=== PATIENT | female | born 1930 | race Caucasian/White ===

== ENCOUNTER → 2016-09-20 | Outpatient (CLI) | payer MEDICARE | END | disposition home or self-care (01) | LOC: YCHH 12:27 | PROVIDERS: ATTEND Family Medicine | DX: N39.0 Urinary tract infection, site not specified (principal) ==

== ENCOUNTER → 2016-10-31 | Outpatient (CLI) | payer MEDICARE | LOC: YCHH 09:40 | PROVIDERS: ATTEND Family Medicine | DX: D64.9 Anemia, unspecified (principal); E78.5 Hyperlipidemia, unspecified; I10 Essential (primary) hypertension ==

== ENCOUNTER 2016-11-07 10:37 | Observation (INO) | payer MEDICARE ==
[2016-11-07] MEDS ORDERED: SODIUM CHLORIDE 0.9% (FLUSH) 10 ML SYG IV PRN ×2 (10:53→16:13)
[2016-11-07] MEDS ORDERED: ASPIRIN TABLET 325 MG TAB PO ONE (10:53)
[2016-11-07] MEDS ORDERED: NITROGLYCERIN 0.4 MG 25 EA TAB SL ONE (10:53)
--- NOTE | 2016-11-07 10:53 | ED.PDOC ---
History of Present Illness - General Chief Complaint: Cardiovascular Problem Stated Complaint: chest pain Time Seen by Provider: 11/07/16 10:52 Source: patient, RN notes reviewed, EMS notes reviewed, family Exam Limitations: no limitations - History of Present Illness Initial Comments: Ms. Mercedes Reid 86 y/o female stated left side of her chest was achy and also her left shoulder which occurred about 4 hours ago also with sob for the last several months,has occassional exertional dyspnea but no exertional pain.Has high blood pressure,gerd,cad,pe/dvt,dementia. Timing/Duration: 4-6 hours Severity: moderate Location: other - left chest Activities at Onset: none Prior Chest Pain/Cardiac Workup: echocardiography, pulmonary embolism Improving Factors: nothing Worsening Factors: nothing Nitro Today/Relief: provided by ED Aspirin Treatment Today: 325 mg x 1 Associated Symptoms: shortness of breath - for one month Allergies/Adverse Reactions: Allergies NO KNOWN ALLERGY Allergy (Verified 11/07/16 11:00) Review of Systems - Review of Systems Constitutional: States: no symptoms reported EENTM: States: no symptoms reported Respiratory: States: see HPI, short of breath Cardiology: States: see HPI Gastrointestinal/Abdominal: States: no symptoms reported Genitourinary: States: no symptoms reported Musculoskeletal: States: no symptoms reported Skin: States: no symptoms reported Neurological: States: no symptoms reported Endocrine: States: no symptoms reported Hematologic/Lymphatic: States: no symptoms reported Past Medical History (General) - Patient Medical History Hx Cardiac Disorders: Yes Hx Hypertension: Yes Hx Gastroesophageal Reflux: Yes Hx Other PMH: Yes - dvt/pe Surgical History: other - hysterectomy,right hip,closed redn c-spine fracture - Activities of Daily Living Patient Lives Alone: Yes Grooming Ability: Independent Eating (Feeding) Ability: Independent Toileting Ability: Independent Family Medical History - Family History Mother Family History: No Known Living Status: Hx Cardiac Disease: Yes - dad Hx Family Cancer: Yes - dad-prostate,pancreas Physical Exam - Physical Exam General Appearance: Alert, Comfortable, No apparent distress Eyes, Ears, Nose, Throat Exam: PERRL/EOMI, normal ENT inspection, TMs normal Neck: non-tender, full range of motion, supple, normal inspection Respiratory: chest non-tender, lungs clear, normal breath sounds, no respiratory distress Cardiovascular/Chest: normal peripheral pulses, regular rate, rhythm, no edema, no gallop, no JVD, no murmur Peripheral Pulses: radial,right: 2+, radial,left: 2+ Gastrointestinal/Abdominal: normal bowel sounds, non tender, soft, no organomegaly, no pulsatile mass Extremity: normal range of motion, non-tender, normal inspection, no pedal edema , no calf tenderness Neurologic: no motor/sensory deficits, alert, normal mood/affect, oriented x 3 Skin Exam: normal color, warm/dry Lymphatic: no adenopathy Progress - Results/Orders Results/Orders: 11/07/16 10:25 B-TYPE NATRIURETIC PEPTIDE/BNP Stat CARDIAC PANEL,ER Stat HEPATIC FUNCTION PANEL Stat 11/07/16 10:53 IV Care:Saline Lock per Protoc QSHIFT Telemetry .ONCE Sodium Chloride 0.9% (Flush) [Saline Flush Syringe] 10 ml IV PRN PRN EKG Stat Pulse Ox Stat 11/07/16 11:51 URINALYSIS Stat 11/07/16 12:18 TSH [THYROID STIMULATING HORMONE] Stat Laboratory Results WBC 4.3 K/mm3 (4.8-10.8) L 11/07/16 10:25 RBC 4.21 M/mm3 (4.20-5.40) 11/07/16 10:25 Hgb 12.8 gm/dL (12.0-16.0) 11/07/16 10:25 Hct 38.7 % (36.0-47.0) 11/07/16 10:25 MCV 91.9 fl (81.0-99.0) 11/07/16 10:25 MCH 30.4 pg (27.0-31.0) 11/07/16 10:25 MCHC 33.1 g/dL (33.0-37.0) 11/07/16 10:25 RDW 13.7 % (11.5-14.5) 11/07/16 10:25 Plt Count 156 K/mm3 (130-400) 11/07/16 10:25 MPV 8.4 fl (7.40-10.4) 11/07/16 10:25 Absolute Neuts (auto) 2.50 K/uL (1.8-6.8) 11/07/16 10:25 Absolute Lymphs (auto) 1.20 K/uL (1.0-3.4) 11/07/16 10:25 Absolute Monos (auto) 0.50 K/uL (0.2-0.8) 11/07/16 10:25 Absolute Eos (auto) 0.10 K/uL (0.0-0.4) 11/07/16 10:25 Absolute Basos (auto) 0.10 K/uL (0.0-0.1) 11/07/16 10:25 Neutrophils % 58.1 % (42.0-78.0) 11/07/16 10:25 Lymphocytes % 27.1 % (20.0-50.0) 11/07/16 10:25 Monocytes % 10.5 % (2.0-9.0) H 11/07/16 10:25 Eosinophils % 2.8 % (1.0-5.0) 11/07/16 10:25 Basophils % 1.5 % (0.0-2.0) 11/07/16 10:25 D-Dimer, Quantitative < 200 ng/mL (0-230) 11/07/16 10:25 Sodium 125 mmol/L (135-145) L 11/07/16 10:25 Potassium 4.3 mmol/L (3.6-5.0) 11/07/16 10:25 Chloride 93 mmol/L (101-111) L 11/07/16 10:25 Carbon Dioxide 26 mmol/L (21-31) 11/07/16 10:25 Anion Gap 10.3 (12-18) L 11/07/16 10:25 BUN 27 mg/dL (7-18) H 11/07/16 10:25 Creatinine 1.53 mg/dL (0.6-1.3) H 11/07/16 10:25 BUN/Creatinine Ratio 17.6 (10-20) 11/07/16 10:25 Random Glucose 89 mg/dL (70-105) 11/07/16 10:25 Serum Osmolality 256.1 mOsm/L (275-295) L 11/07/16 10:25 Calcium 9.4 mg/dL (8.4-10.2) 11/07/16 10:25 Magnesium 1.9 mg/dL (1.8-2.5) 11/07/16 10:25 Total Bilirubin 1.0 mg/dL (0.2-1.0) 11/07/16 10:25 Direct Bilirubin 0.3 mg/dL (0-0.2) H 11/07/16 10:25 Indirect Bilirubin 0.7 mg/dL (0.2-0.8) 11/07/16 10:25 AST 32 IU/L (10-42) 11/07/16 10:25 ALT < 8 IU/L (10-60) L 11/07/16 10:25 Alkaline Phosphatase 36 IU/L (42-121) L 11/07/16 10:25 Creatine Kinase 19 IU/L (26-140) L 11/07/16 10:25 CK-MB (CK-2) 2.0 ng/mL (0.0-4.4) 11/07/16 10:25 CK-MB (CK-2) % Not Reportable 11/07/16 10:25 Troponin I 0.03 ng/mL (0.01-0.05) 11/07/16 10:25 B-Natriuretic Peptide 281.0 pg/ml (0-100) H* 11/07/16 10:25 Serum Total Protein 6.6 gm/dL (6.4-8.2) 11/07/16 10:25 Albumin 3.6 g/dl (3.2-5.5) 11/07/16 10:25 Discuss lab results with patient and family recommending hospital OBS and family agreeable with the plan. - EKG/XRAY/CT EKG: Sinus, nonspecific ST T wave Chg Comments: hr-56,LAFB,slight qrs widening XRAY: chest - no acute abnormality Departure - Departure Clinical Impression: Hyponatremia, Renal insufficiency, mild, Malaise and fatigue Chest pain Qualifiers: Chest pain type: unspecified Qualified Code(s): R07.9 - Chest pain, unspecified Time of Disposition: 12:59 - D/W Adonay [id number] Disposition: Admit Patient Condition: Fair Departure Forms: Patient Portal Self Enrollment Referrals: Vahid Ortega MD [Primary Care Provider] - 1-2 Weeks
--- NOTE | 2016-11-07 11:16 | RAD ---
EXAM DESCRIPTION: Chest,1 View CLINICAL HISTORY: 86 years,Female,pain COMPARISON: December 04, 2008 FINDINGS: Lung gomez are clear, no consolidation, effusions, or nodules. Heart size and pulmonary vascularity are normal. Bony elements are unremarkable for age. IMPRESSION: Unremarkable chest. Stable Electronically signed by: Adriano Franks MD 11/07/2016 11:15 AM CDT
[2016-11-07] MEDS ORDERED: SODIUM CHLORIDE 0.9% 1000ML 1,000 ML IVS PRN (14:09)
--- NOTE | 2016-11-07 14:27 | HP ---
SUPERVISING PHYSICIAN: López Alas M.D. CHIEF COMPLAINT: Chest pain. HISTORY OF PRESENT ILLNESS: Ms. Reid is an 86 year-old female patient that presented to the Emergency Department today complaining of left sided chest pain that was described as achy with some shoulder discomfort that occurred about 4 hours prior to arrival. She had also noted she has had shortness of breath over the last several months and has occasional exertional dyspnea but no pain with exertion. She does have a significant history for hypertension, previous deep venous thromboses, PEs and gastroesophageal reflux disease. In the Emergency Department, initial laboratory studies showed she had cardiac enzymes that were within normal limits with troponin 0.03 but elevated BMP of 281. Also of significance was a low serum osmolality at 256 along with a low sodium of 125. The patient does have a history of being recently placed on Bactrim for a lower leg infection and it was noted by the patient she was encouraged to drink water while taking her medication. Her EKG showed a normal sinus rhythm with a left anterior fascicular block which is unchanged compared to previous note of a myocardial perfusion scan on 07/14/07 per medical record review. Given the fact that was having some chest pains on admission, Dr. Wilson, Emergency Room physician, requested the patient be placed on admission to further rule out any acute myocardial injury. The patient was placed in Observation in stable condition for treatment of hyponatremia along with further telemetry, monitoring and testing to further rule out an acute myocardial infarction. PAST MEDICAL HISTORY: 1. History of atrial fibrillation on Xarelto. 2. Pulmonary embolism in 2005. 3. Diverticulosis. 4. Hypertension. 5. Osteoporosis. PAST SURGICAL HISTORY: 1. Appendectomy. 2. Left leg fracture repair with internal fixation times 2. 3. Hysterectomy with bilateral salpingo-oophorectomy. 4. Tonsillectomy. 5. Right hip fracture with hemiarthroplasty in October 2009. 6. Left breast tumor. 7. IVC filter placement. HOME MEDICATIONS: 1. Toprol XL 25 mg daily. 2. Feosol tablet 325 mg daily. 3. TriCor 145 mg daily. 4. Tramadol 50 mg every 6 hours p.r.n. for pain. 5. Xarelto 10 mg daily. 6. Calcium supplement 2 tablets daily. 7. Gaviscon 3 mL daily p.r.n. 8. Propafenone 150 mg daily. 9. Spironolactone 25 mg daily. 10. Namenda XR 28 mg daily. ALLERGIES: MORPHINE. FAMILY HISTORY: Father from emphysema and cancer. Mother from emphysema and asthma. SOCIAL HISTORY: The patient is housewife. She is . She does live in [place]. She has never smoked nor does she drink alcohol or use illicit drugs. REVIEW OF SYSTEMS: CONSTITUTIONAL: Denies any fevers, aches or chills. HEENT: No vision changes, visual disturbances, headaches or syncopal episodes. RESPIRATORY: As noted in the History of Present Illness, exertional dyspnea which is chronic. CARDIOVASCULAR: As noted in the History of Present Illness. GASTROINTESTINAL: No nausea, vomiting or diarrhea. GENITOURINARY: No dysuria, increased frequency, hematuria or other urinary symptoms. MUSCULOSKELETAL: As noted in the History of Present Illness. NEUROLOGIC: Denies any syncopal episodes, vision changes, headaches or other neurological symptoms. PHYSICAL EXAMINATION: VITAL SIGNS: Temperature 97.5, pulse 54, blood pressure 150/74, respirations 17 , O2 sat 97% on room air. GENERAL: The patient appears to be in no distress. Appears well hydrated and well nourished. HEENT: Tympanic membranes are clear bilaterally. Oropharynx is pink and moist without any lesions. NECK: No jugular venous distention. Neck is supple with full range of motion. CHEST: Lungs are clear to auscultation bilaterally without any rhonchi, wheezing or rales. CARDIOVASCULAR: Regular rate and rhythm without appreciable murmurs, gallops, or rubs. ABDOMEN: Soft, non-tender. Positive bowel sounds. EXTREMITIES: No clubbing, cyanosis or edema. NEUROLOGIC: She is alert and oriented times three. RADIOLOGY: Chest x-ray single view per radiology interpretation shows unremarkable chest and stable. ASSESSMENT: 1. Chest pain, rule out acute myocardial infarction. 2. History of atrial fibrillation with current sinus rhythm with a left anterior fascicular block. No significant change compared to previous. 3. Hypertension, although hypotensive. 4. Diverticulosis. 5. Osteoporosis. 6. Elevated beta natriuretic peptide with no significant history of congestive heart failure with last echocardiogram per review of records on 07/14/07 showing a calculated ejection fraction on myocardial perfusion scan to be 72%. 7. Electrolyte imbalance to include moderate hyponatremia possibly secondary to excessive fluid intake with a current elevated BNP on admission with no mention of a history of congestive heart failure. 8. Extensive peripheral vascular disease with previous pulmonary embolism currently on Xarelto. PLAN: The patient will be placed in Observation tonight to continue with cardiac enzymes to further rule out any acute myocardial infarction. She will be given some normal saline 60 mL an hour as well as a small dose of Lasix to attempt to normalize her sodium. Will continue to monitor the patient on telemetry as well as repeat cardiac enzymes and EKGs as per cardiac rule out protocol. Anticipate possible discharge tomorrow. She will also be on fluid restriction of 1500 mL per 24 hours in efforts to normalize her sodium as well as her osmolality. Until discharge, will continue to monitor the patient closely and treat appropriately. #[id number] [facility]
[2016-11-07] MEDS ORDERED: FUROSEMIDE INJ 20 MG/2 ML VIAL IV ONE (16:12)
[2016-11-07] MEDS ORDERED: ACETAMINOPHEN 325 MG TAB PO PRN (16:13)
[2016-11-07] MEDS ORDERED: NITROGLYCERIN 0.4 MG 25 EA TAB SL PRN (16:13)
[2016-11-07] MEDS ORDERED: IV SET AND CAP CHANGE INJ INJ SCH (16:30)
[2016-11-07] MEDS ORDERED: traMADol HCL 50 MG TAB PO PRN (21:18)
[2016-11-07] MEDS: SODIUM CHLORIDE 0.9% (FLUSH) 10 ML SYG IV SCH (21:35)
[2016-11-07] MEDS: PROPAFENONE 150 MG TAB PO SCH (21:37)
[2016-11-07] MEDS: NON-FORMULARY MEDICATION 1 EA MIS (Memantine Hcl [Namenda Xr] 28 MG) PO SCH (21:42)
[2016-11-08] MEDS ORDERED: ASPIRIN TABLET 325 MG TAB ONE (07:15)
[2016-11-08] MEDS ORDERED: ASPIRIN TABLET 325 MG TAB PO SCH (09:00)
[2016-11-08] MEDS ORDERED: SPIRONOLACTONE 25 MG TAB PO SCH (09:00)
[2016-11-08] MEDS ORDERED: FENOFIBRIC ACID 135 MG CAP PO SCH (09:00)
[2016-11-08] MEDS ORDERED: FERROUS SULFATE 325 MG TAB PO SCH (09:00)
[2016-11-08] MEDS ORDERED: NON-FORMULARY MEDICATION 1 EA MIS (Fenofibrate [Tricor] 145 MG) PO SCH (09:00)
[2016-11-08] MEDS ORDERED: METOPROLOL SUCCINATE XL 25 MG TAB PO SCH (09:00)
[2016-11-08] MEDS ORDERED: RIVAROXABAN 10 MG TAB PO SCH (09:00)
[2016-11-08] MEDS ORDERED: CALCIUM CARBONATE-VITAMIN D 500 MG TAB PO SCH (09:00)
[2016-11-08] MEDS: PROPAFENONE 150 MG TAB PO SCH (09:13)
[2016-11-08] MEDS: NON-FORMULARY MEDICATION 1 EA MIS (Memantine Hcl [Namenda Xr] 28 MG) PO SCH (09:13)
[2016-11-08] MEDS: SODIUM CHLORIDE 0.9% (FLUSH) 10 ML SYG IV SCH (09:13)
--- NOTE | 2016-11-08 09:57 | PCM.CORE ---
Physician DVT/VTE - Prophylaxis Currently: Patient already on anticoagulation therapy - xarelto - Nurse DVT Assessment & Total Each Risk Factor Represents 3 Points: Age over 75 years, Hx of DVT/PE, Medical PT with Hx of DC, CHF, Severe infection/sepsis Each Risk Factor Represents 1 Point: Medical PT at Bed Rest DVT Assessment Score: 10
[2016-11-08 10:50] VITALS: BP 114/63; TEMP 97.8; O2SAT 99
--- NOTE | 2016-11-12 08:51 | DS ---
SUPERVISING PHYSICIAN: Misael Alas MD DISCHARGE DIAGNOSIS: 1. Chest wall pain, felt to be secondary to musculoskeletal discomfort with cardiac enzymes within normal limits with no significant changes on EKG. 2. History of atrial fibrillation with sinus rhythm on admission with a noted left anterior fascicular block, which is unchanged and not new compared to previous EKGs. 3. Hypertension, stable. 4. Elevated BNP with no significant history of congestive heart failure with last echocardiogram by review of records on 07/14/07 showing ejection fraction on myocardial perfusion scan of 72%. 5. Electrolyte imbalance to include hyponatremia, felt to be secondary to excessive fluid intake after treatment for previous lower leg wound with current BNP elevated on admission with no mention of history of congestive heart failure. 6. History of diverticulosis. 7. History of osteoporosis. 8. History of extensive peripheral vascular disease with previous pulmonary embolism, currently on Xarelto. HISTORY OF PRESENT ILLNESS: Ms. Reid is an 86-year-old female patient that presented to the Emergency Department on date of admission of 11/07 complaining of left sided chest pain that was described as "achy" with some shoulder discomfort that occurred about 4 hours prior to arrival to the Emergency Department. She noted she had been having shortness of breath over the last several months and has a few occasions of exertional dyspnea, but no pain with exertion. She does have a significant history for hypertension and previous deep venous thromboses, PEs and gastroesophageal reflux disease, currently on Xarelto. In the Emergency Department, initial laboratory studies showed she had cardiac enzymes that were within normal limits with troponin 0.03 , but significantly elevated BNP of 281. Also of significance was a low serum osmolality at 256 along with a low sodium of 125. The patient has a history of being recently placed on Bactrim for a lower leg infection and it was noted by the patient she was encouraged to drink water while taking her medication. Her initial EKG showed a normal sinus rhythm with a left anterior fascicular block which is unchanged compared to previous note of a myocardial perfusion scan on 07/14/07 per medical record review. Given the fact that was having some chest pains on admission, Dr. Wilson, Emergency Room physician, requested the patient be placed in observation to further rule out any acute myocardial injury. The patient was placed in Observation in stable condition for treatment of hyponatremia along with further telemetry, monitoring and testing to further rule out an acute myocardial infarction. LABORATORY: CBC was stable with a white count of 4.4 at discharge, hemoglobin 12.1, hematocrit 35.9, platelet count 144,000, differential without a left shift. Coagulation studies slightly elevated PT of 15.8, but the patient is on Xarelto, with PT-T 33.5. D-dimer was less than 200. Chemistries initially on admission showed electrolyte imbalance with low sodium of 125 and after treatment with normal saline and at time of discharge, sodium to 130. Potassium remained within normal limits and at discharge was 3.8, BUN 27, creatinine 1.3. Initial osmolality on admission was 256, prior to discharge was 265. Liver functions were within normal limits. She had four sets of cardiac enzymes, all with a troponin of 0.03 and normal CPK and CK-MB. She had a slightly elevated BNP on admission of 281. Lipid profile showed triglycerides 38, cholesterol 116, LDL 46, HDL 61, TSH within normal limits. Urinalysis on admission was within normal limits. RADIOLOGY: One chest x-ray in the Emergency Department prior to admission, single view, per radiology interpretation showed unremarkable chest that was stable compared to 12/04/08. EKG prior to admission, 12-lead, showed sinus rhythm with nonspecific ST wave changes and a left anterior fascicular block. When compared to previous EKG, it was unchanged. Additional EKGs showed no significant changes compared to admission. HOSPITAL COURSE: Ms. Reid was admitted through the Emergency Department as noted in history of present illness with concerns for chest pains with hyponatremia. On admission to the Medical/Surgical Floor, the patient was actually pain free and remained pain free through the entire admission. She remained on telemetry, showed no arrhythmias, and was started on sodium replacement with normal and on the morning of discharge had clinically shown improvement and was no longer complaining of any pain at all and remained hemodynamically stable. She was felt clinically well enough for discharge and to have close clinical followup in the outpatient setting. PLAN: Ms. Reid was discharged on 11/08/16 with instructions to have close clinical followup with her primary care provider, Dr. Ortega, as scheduled and to have continued home health care with [facility]. She was to resume her home medications as previous to her hospitalization. She was encouraged to drink fluids in moderation to prevent over hydration and to limit to no more than 1800 mL in a 24 hour period. She was return to the hospital should she have failure to improve or any recurrence of chest pains or any other concerning symptoms. At time of discharge, no new medications were prescribed. All her medications prior to hospitalization were resumed. Her diet was to resume her usual diet as tolerated. Activity was to ambulate only with a walker and increase activity as tolerated. Condition at discharge was stable. #[id number] [facility]
== END 2016-11-08 11:00 | disposition home health service (06) ==
LOC: ER 10:37 → MS 14:27
PROVIDERS: ADMIT Nurse Practitioner Family; ATTEND Nurse Practitioner Family
DX: R07.89 Other chest pain (principal); I48.91 Unspecified atrial fibrillation; I44.4 Left anterior fascicular block; I10 Essential (primary) hypertension; R79.89 Other specified abnormal findings of blood chemistry; E87.1 Hypo-osmolality and hyponatremia; R06.02 Shortness of breath; K57.30 Diverticulosis of large intestine without perforation or abscess without bleeding; M81.0 Age-related osteoporosis without current pathological fracture; I73.9 Peripheral vascular disease, unspecified; K21.9 Gastro-esophageal reflux disease without esophagitis; Z79.01 Long term (current) use of anticoagulants; Z79.899 Other long term (current) drug therapy; Z88.6 Allergy status to analgesic agent; Z86.711 Personal history of pulmonary embolism; Z86.718 Personal history of other venous thrombosis and embolism; Z90.49 Acquired absence of other specified parts of digestive tract; Z90.710 Acquired absence of both cervix and uterus; Z82.5 Family history of asthma and other chronic lower respiratory diseases; Z80.9 Family history of malignant neoplasm, unspecified
CPT/HCPCS: 36415 ×6; 71010; 80048 ×2; 80061; 80076; 81001; 82550 ×4; 82553 ×4; 83880; 84443; 84484 ×5; 85025 ×2; 85379; 85610; 85730; 93005 ×2; 94760 ×2; 96361 ×2; 96374; 97116; 97162; 99284; G0378; G8978; G8979; G8980; J1940; J7030

== ENCOUNTER → 2017-05-21 | Outpatient (CLI) | payer MEDICARE | END | disposition home or self-care (01) | LOC: YCHH 14:02 | PROVIDERS: ATTEND Family Medicine | DX: N39.0 Urinary tract infection, site not specified (principal) ==

== ENCOUNTER 2017-05-29 11:52 | Emergency (ER) | payer MEDICARE ==
[2017-05-29 12:13] VITALS: TEMP 96.9
[2017-05-29] MEDS ORDERED: methylPREDNISolone SODIUM SUC 125 MG/2 ML VIAL IV ONE (12:32)
[2017-05-29] MEDS ORDERED: SODIUM CHLORIDE 0.9% 1000ML 1,000 ML IVS ONE (12:32)
[2017-05-29] MEDS ORDERED: diphenhydrAMINE HCL 50 MG/ML VIAL IV ONE (12:33)
--- NOTE | 2017-05-29 13:33 | ED.PDOC ---
History of Present Illness - General Chief Complaint: Allergic Reaction Stated Complaint: rash,possible allergic reaction to Fentanyl Time Seen by Provider: 05/29/17 12:24 Source: patient, RN notes reviewed, Vital Signs reviewed, family - Daughters Exam Limitations: no limitations - History of Present Illness Initial Comments: Daughters brought patient in with possible allergic reaction. She has a red rash on her face that started yesterday. Denies any mouth or throat swelling. No SOB. They belief it is due to the Fentanyl patch. She had a mild reaction when first started earlier this month so stopped it. On the advise of the magnetic observer they restarted it a few days ago. Timing/Duration: 24 hours Severity: moderate Improving Factors: nothing Worsening Factors: nothing Associated Symptoms: denies symptoms Allergies/Adverse Reactions: Allergies Morphine Adverse Reaction (Verified 11/07/16 13:12) Other causes hallucinations Home Medications: Ambulatory Orders Aluminum Hydroxide-Mag Carb [Gaviscon 95-358 mg/15Ml] 3 ml PO DAILY PRN Calcium Carbonate-Vitamin D [Oscal 500/200 D-3 500-200 mg-Unit] 2 tab PO DAILY 11/07/16 Fenofibrate [Tricor] 145 mg PO DAILY 11/07/16 Ferrous Sulfate [Feosol Tab] 325 mg PO DAILY 11/07/16 Memantine HCl [Namenda Xr] 28 mg PO DAILY 11/07/16 Metoprolol Succinate [Toprol Xl] 25 mg PO DAILY 11/07/16 Propafenone HCl 150 mg PO BID 11/07/16 Rivaroxaban [Xarelto] 10 mg PO DAILY 11/07/16 Spironolactone 25 mg PO DAILY 11/07/16 Tramadol HCl 50 mg PO Q6H PRN 11/07/16 Methylprednisolone [Medrol Dose Adiel] 4 mg PO DAILY #1 pack 05/29/17 Review of Systems - Review of Systems Constitutional: States: no symptoms reported EENTM: States: no symptoms reported. Denies: throat swelling, mouth swelling Respiratory: States: no symptoms reported, cough. Denies: short of breath Cardiology: States: no symptoms reported Gastrointestinal/Abdominal: States: no symptoms reported Musculoskeletal: States: no symptoms reported Skin: States: see HPI, rash Neurological: States: no symptoms reported All other Systems: No Change from Baseline Past Medical History (General) - Patient Medical History Hx Seizures: No Hx Stroke: No Hx Dementia: Yes Hx Asthma: No Hx of COPD: No Hx Cardiac Disorders: Yes Hx Congestive Heart Failure: No Hx Pacemaker: No Hx Hypertension: Yes Hx Diabetes: No Hx Gastroesophageal Reflux: Yes Hx MRSA: No - Vaccination History Hx Influenza Vaccination: Yes Hx Pneumococcal Vaccination: Yes - Social History Hx Tobacco Use: Yes Hx Alcohol Use: No Hx Substance Use: No Hx Substance Use Treatment: No Hx Depression: No Hx Physical Abuse: No Hx Emotional Abuse: No - Female History Patient : No Family Medical History - Family History Mother Family History: No Known Living Status: Hx Cardiac Disease: Yes - dad Hx Family Cancer: Yes - dad-prostate,pancreas Physical Exam - Physical Exam General Appearance: Alert, Comfortable, Frail, No apparent distress, Well Groomed, Well Nourished Ears, Nose, Throat: other - dry mucous membranes Neck: supple, normal inspection Respiratory: lungs clear, normal breath sounds, no respiratory distress, no accessory muscle use Cardiovascular/Chest: regular rate, rhythm, no gallop, no JVD, no murmur Gastrointestinal/Abdominal: normal bowel sounds, non tender, soft Extremity: non-tender, normal inspection Neurologic: alert, normal mood/affect, oriented x 3 Skin Exam: rash - erythematous, urticarial rash on face. Comments: Vital Signs 05/29/17 05/29/17 12:10 13:00 Temperature 96.9 F L Pulse Rate [ 76 69 Right Brachial] Respiratory 20 20 Rate Blood Pressure 195/105 169/98 [Right Arm] O2 Sat by Pulse 94 L 94 L Oximetry Progress - Progress Progress: 05/29/17 13:44 Rash is starting to fade after Benadryl 25mg IV, Solu-Medrol 125mg IV and NS 1L bolus Will d/c home with Rx for Medrol dose pack to use just if needed Departure - Departure Clinical Impression: Allergic reaction caused by a drug Qualifiers: Encounter type: initial encounter Qualified Code(s): T78.40XA - Allergy, unspecified, initial encounter Time of Disposition: 13:50 Disposition: Discharge to Home or Self Care Condition: Good Departure Forms: ED Discharge - Pt. Copy, Patient Portal Self Enrollment Instructions: DI for Adverse Drug Reaction -- Allergic Diet: resume usual diet - Increase water intake Activity: increase activity as tolerated Referrals: Vahid Ortega MD [Primary Care Provider] - 1-2 Weeks Prescriptions: Methylprednisolone [Medrol Dose Adiel] 4 mg PO DAILY #1 pack Home Medications: Ambulatory Orders Aluminum Hydroxide-Mag Carb [Gaviscon 95-358 mg/15Ml] 3 ml PO DAILY PRN Calcium Carbonate-Vitamin D [Oscal 500/200 D-3 500-200 mg-Unit] 2 tab PO DAILY 11/07/16 Fenofibrate [Tricor] 145 mg PO DAILY 11/07/16 Ferrous Sulfate [Feosol Tab] 325 mg PO DAILY 11/07/16 Memantine HCl [Namenda Xr] 28 mg PO DAILY 11/07/16 Metoprolol Succinate [Toprol Xl] 25 mg PO DAILY 11/07/16 Propafenone HCl 150 mg PO BID 11/07/16 Rivaroxaban [Xarelto] 10 mg PO DAILY 11/07/16 Spironolactone 25 mg PO DAILY 11/07/16 Tramadol HCl 50 mg PO Q6H PRN 11/07/16 Methylprednisolone [Medrol Dose Adiel] 4 mg PO DAILY #1 pack 05/29/17 Additional Instructions: Benadryl 25mg every 6 hours as needed
[2017-05-29 14:19] VITALS: O2SAT 95
[2017-05-29 14:20] VITALS: BP 167/98
== END 2017-05-29 14:15 | disposition home or self-care (01) ==
LOC: ER 11:52
DX: T78.40XA Allergy, unspecified, initial encounter (principal); Z88.6 Allergy status to analgesic agent; I10 Essential (primary) hypertension; K21.9 Gastro-esophageal reflux disease without esophagitis; F03.90 Unspecified dementia, unspecified severity, without behavioral disturbance, psychotic disturbance, mood disturbance, and anxiety; Z79.899 Other long term (current) drug therapy; Z87.891 Personal history of nicotine dependence; X58.XXXA Exposure to other specified factors, initial encounter
CPT/HCPCS: J1200; J2930; J7030

== ENCOUNTER → 2017-06-17 | Outpatient (CLI) | payer MEDICARE | END | disposition home or self-care (01) | LOC: YCHH 16:46 | PROVIDERS: ATTEND Family Medicine | DX: R30.0 Dysuria (principal) ==

== ENCOUNTER 2017-06-18 15:17 | Observation (INO) | payer MEDICARE ==
[2017-06-18] MEDS ORDERED: SODIUM CHLORIDE 0.9% (FLUSH) 10 ML SYG IV PRN ×2 (15:54→20:26)
[2017-06-18] MEDS ORDERED: fentaNYL CITRATE INJ 50 MCG/ML AMP IV ONE (15:57)
--- NOTE | 2017-06-18 16:06 | ED.PDOC ---
History of Present Illness - General Chief Complaint: Abdominal Pain Stated Complaint: abdominal pain Time Seen by Provider: 06/18/17 15:54 Information Source: family Exam Limitations: no limitations - History of Present Illness Initial Comments: PT PRESENTS TO THE ED WITH COMPLAINT OF INTERMITTENT ABDOMINAL PAIN ASSOCIATED WITH RECTAL BLEEDING. PT ALSO COMPLAINS OF CHRONIC BACK PAIN. FAMILY DENIES FEVER, VOMITING, DIARRHEA, CONSTIPATION. Abdominal Pain Onset Location: RLQ, LLQ Pain Radiation: no radiation Quality: intermittent Timing/Duration: days - 4-5 Improving Factors: nothing Worsening Factors: nothing Associated Symptoms: back pain Review of Systems - Review of Systems Constitutional: Denies: chills, fever EENTM: Denies: nose congestion, throat pain Respiratory: Denies: cough, short of breath Cardiology: Denies: chest pain, palpitations, syncope Gastrointestinal/Abdominal: States: see HPI, abdominal pain. Denies: diarrhea, vomiting Genitourinary: Denies: dysuria, frequency Musculoskeletal: Denies: joint pain, joint swelling Skin: Denies: dryness, lesions Neurological: Denies: headache, numbness Endocrine: States: no symptoms reported Hematologic/Lymphatic: States: no symptoms reported Past Medical History (General) - Patient Medical History Hx Seizures: No Hx Stroke: No Hx Dementia: Yes Hx Asthma: No Hx of COPD: No Hx Cardiac Disorders: Yes Hx Congestive Heart Failure: No Hx Pacemaker: No Hx Hypertension: Yes Hx Diabetes: No Hx Gastroesophageal Reflux: Yes Hx MRSA: No Surgical History: other - Vaccination History Hx Influenza Vaccination: Yes Hx Pneumococcal Vaccination: Yes - Social History Hx Tobacco Use: Yes Hx Alcohol Use: No Hx Substance Use: No Hx Substance Use Treatment: No Hx Depression: No Hx Physical Abuse: No Hx Emotional Abuse: No - Female History Patient is a Female of Child Bearing Age (10 -59 yrs old): No Patient : No Family Medical History - Family History Mother Family History: No Known Living Status: Hx Cardiac Disease: Yes - dad Hx Family Cancer: Yes - dad-prostate,pancreas Physical Exam - Physical Exam General Appearance: Alert, Frail, Obvious distress - MILD, Well Groomed, Well Hydrated Eyes, Ears, Nose, Throat Exam: PERRL/EOMI Neck: supple, normal inspection Respiratory: lungs clear, normal breath sounds, no respiratory distress Cardiovascular/Chest: regular rate, rhythm, no murmur Gastrointestinal/Abdominal: soft, tenderness - BILATERAL LQ TENDERNESS Back Exam: CVA tenderness (R), CVA tenderness (L) Extremity: non-tender, normal inspection Neurologic: alert, other - CONFUSED Skin Exam: normal color, warm/dry Progress - Progress Progress: 06/18/17 18:00 PT RESTING COMFORTABLY ON RE-EVAL. LABS AND DIAGNOSTIC STUDIES DISCUSSED WITH FAMILY MEMBERS AT BEDSIDE. - Results/Orders Results/Orders: 06/18/17 15:54 IV Care:Saline Lock per Protoc QSHIFT Sodium Chloride 0.9% (Flush) [Saline Flush Syringe] 10 ml IV PRN PRN 06/18/17 16:50 Hold Metformin x 48Hrs [id number] 06/18/17 16:51 Sodium Chloride 0.9% 1000ML [Ns 1000 ml] 1,000 ml IVS ONCE 06/18/17 17:53 Chest,1 View [RAD] Stat Laboratory Results - last 24 hr 06/18/17 06/18/17 06/18/17 16:10 16:10 16:30 WBC 5.0 RBC 4.57 Hgb 14.6 Hct 42.9 MCV 93.7 MCH 31.9 H MCHC 34.1 RDW 15.3 H Plt Count 238 MPV 7.5 Absolute Neuts (auto) 3.30 Absolute Lymphs (auto) 1.00 Absolute Monos (auto) 0.60 Absolute Eos (auto) 0.10 Absolute Basos (auto) 0.00 Neutrophils % 65.4 Lymphocytes % 20.2 Monocytes % 11.4 H Eosinophils % 2.1 Basophils % 0.9 Sodium 121 L Potassium 4.3 Chloride 86 L Carbon Dioxide 27 Anion Gap 12.3 BUN 14 Creatinine 0.90 BUN/Creatinine Ratio 15.6 Random Glucose 99 Serum Osmolality 244.6 L* Calcium 9.5 Total Bilirubin 1.4 H Direct Bilirubin 0.6 H Indirect Bilirubin 0.8 AST 32 ALT < 8 L Alkaline Phosphatase 113 Serum Total Protein 6.8 Albumin 3.6 Urine Color Yellow Urine Appearance Clear Urine pH 7.0 Ur Specific [place] 1.015 Urine Protein Negative Urine Glucose (UA) Negative Urine Ketones Negative Urine Blood Negative Urine Nitrite Negative Urine Bilirubin Negative Urine Urobilinogen 2.0 H Ur Leukocyte Esterase Negative Urine RBC 0-1 Urine WBC 0-1 Ur Epithelial Cells 0-1 Amorphous Sediment 1+ Urine Bacteria 0 Stool Occult Blood 06/18/17 16:30 WBC RBC Hgb Hct MCV MCH MCHC RDW Plt Count MPV Absolute Neuts (auto) Absolute Lymphs (auto) Absolute Monos (auto) Absolute Eos (auto) Absolute Basos (auto) Neutrophils % Lymphocytes % Monocytes % Eosinophils % Basophils % Sodium Potassium Chloride Carbon Dioxide Anion Gap BUN Creatinine BUN/Creatinine Ratio Random Glucose Serum Osmolality Calcium Total Bilirubin Direct Bilirubin Indirect Bilirubin AST ALT Alkaline Phosphatase Serum Total Protein Albumin Urine Color Urine Appearance Urine pH Ur Specific [place] Urine Protein Urine Glucose (UA) Urine Ketones Urine Blood Urine Nitrite Urine Bilirubin Urine Urobilinogen Ur Leukocyte Esterase Urine RBC Urine WBC Ur Epithelial Cells Amorphous Sediment Urine Bacteria Stool Occult Blood Negative Departure - Departure Clinical Impression: Hyponatremia Abdominal pain Qualifiers: Abdominal location: lower abdomen, unspecified Qualified Code(s): R10.30 - Lower abdominal pain, unspecified Hydronephrosis Qualifiers: Hydronephrosis type: with ureteropelvic junction obstruction Qualified Code(s) : 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 Copy, Patient Portal Self Enrollment Instructions: DI for Abdominal Pain-Adult Referrals: Vahid Ortega MD [Primary Care Provider] - 1-2 Weeks Home Medications: Ambulatory Orders Aluminum Hydroxide-Mag Carb [Gaviscon 95-358 mg/15Ml] 3 ml PO DAILY PRN Calcium Carbonate-Vitamin D [Oscal 500/200 D-3 500-200 mg-Unit] 2 tab PO DAILY 11/07/16 Fenofibrate [Tricor] 145 mg PO DAILY 11/07/16 Ferrous Sulfate [Feosol Tab] 325 mg PO DAILY 11/07/16 Memantine HCl [Namenda Xr] 28 mg PO DAILY 11/07/16 Metoprolol Succinate [Toprol Xl] 25 mg PO DAILY 11/07/16 Propafenone HCl 150 mg PO BID 11/07/16 Rivaroxaban [Xarelto] 10 mg PO DAILY 11/07/16 Spironolactone 25 mg PO DAILY 11/07/16 Tramadol HCl 50 mg PO Q6H PRN 11/07/16 Methylprednisolone [Medrol Dose Adiel] 4 mg PO DAILY #1 pack 05/29/17 Decision To Admit - Decistion To Admit Decision to Admit Reason: Admit from ER Decision to Admit Date: 06/18/17 - CASE DISCUSSED WITH DR. GUARDADO WHO AGREES TO ADMIT PATIENT. Decision to Admit Time: 18:03
[2017-06-18] MEDS ORDERED: SODIUM CHLORIDE 0.9% 1000ML 1,000 ML IVS ONE (16:51)
--- NOTE | 2017-06-18 17:37 | CT ---
EXAM DESCRIPTION: Abdomen w/Contrast CLINICAL HISTORY: 86 years Female, LOWER ABD PAIN X 4 DAYS COMPARISON: None. TECHNIQUE: This exam was performed according to our departmental dose-optimization program, which includes automated exposure control, adjustment of the mA and/or kV according to patient size and/or use of iterative reconstruction technique. Enhanced examination of the abdomen with bolus non-ionic contrast enhancement without oral contrast enhancement. FINDINGS: The lung bases are essentially clear without infiltrate or effusions. Moderate cardiomegaly is present. The liver normally enhances without cystic or solid mass. The gallbladder is normally distended without stones or significant intrahepatic ductal dilation. A small normal spleen is present. The pancreas is severely atrophic. The adrenal glands are small and normal in size. Benign cystic disease involving both kidneys is present without solid mass. Marked hydronephrosis with caliectasis and pelviectasis of the right kidney is present without hydroureter. The UPJ obstruction is suspected. On the left milder caliectasis and moderate pelviectasis again without hydroureter suggesting an element of UPJ obstruction less severe on the left. Tortuous calcified nonaneurysmal aorta is noted with a infrarenal vena caval filter noted in place. The inferior vena cava appears patent. No retroperitoneal adenopathy is seen. No abdominal or pelvic ascites is noted. The anterior abdominal wall is unremarkable. Prior right hip replacement is noted with normally distended bladder. The uterus appears to be surgically absent. Moderate scoliosis and degenerative change in the spine is present grade 1 degenerative spondylolisthesis at L5-S1 and marked compression deformity of the L1 vertebral body with mildly retropulsed bone. A moderate 50% compression deformity of T11 is evident with only minimal retropulsed bone at the superior margin of T10. Very slight impaction of the superior endplate of L3 suggest minimal less than 10% compression deformity, age indeterminate. Large and small bowel caliber is essentially normal without acute intra-abdominal inflammatory process or abdominal or pelvic ascites IMPRESSION: 1. Bilateral hydronephrosis most suggestive of UPJ obstructions moderately severe on the right and moderate on the left. Bilateral benign renal cystic disease noted. 2. Scoliosis and advanced degenerative changes in the thoracolumbar spine with prior right hip replacement. Multiple age-indeterminate lower thoracic and lumbar spine compression deformities are noted with grade 1 degenerative spondylolisthesis also evident at L5-S1 3. Indwelling vena caval filter and surgical absence of the uterus. 4. Atrophic pancreas and atherosclerotic nonaneurysmal aorta. 5. No evidence of bowel obstruction or intra-abdominal mass or ventral or inguinal hernia. Electronically signed by: López Daniels MD 06/18/2017 5:35 PM [facility]
--- NOTE | 2017-06-18 18:17 | RAD ---
EXAM DESCRIPTION: Chest,1 View CLINICAL HISTORY: hyponatremia COMPARISON: 11/07/2016 FINDINGS: Cardiac silhouette is stable. Mild increased width of the superior mediastinum is likely related to positioning and low lung volumes. There is atelectasis at the right lung base and in the perihilar regions and there is mild engorgement of the central pulmonary vessels. No large region of consolidation is seen. IMPRESSION: Mild central pulmonary vascular engorgement. Electronically signed by: Ron Ervin 06/18/2017 6:16 PM [facility]
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
[2017-06-18] MEDS ORDERED: LEVALBUTEROL NEBS 0.63 MG/3 ML VIAL INH PRN (20:26)
[2017-06-18] MEDS ORDERED: MAGNESIUM HYDROXIDE 30 ML UD PO PRN (20:26)
[2017-06-18] MEDS ORDERED: ALUM & MAG HYDROX-SIMETHICONE 30 ML UD PO PRN (20:26)
[2017-06-18] MEDS ORDERED: IV SET AND CAP CHANGE INJ INJ SCH (20:30)
[2017-06-18] MEDS ORDERED: SOD CHL 3% *HYPERTONIC* 500ML 300 ML IVS ONE (20:38)
[2017-06-18] MEDS: ACETAMINOPHEN 325 MG TAB PO PRN (21:57)
[2017-06-18] MEDS: PROPAFENONE 150 MG TAB PO SCH (23:35)
[2017-06-18] MEDS: FUROSEMIDE INJ 40 MG/4 ML VIAL IV SCH (23:44)
[2017-06-19] MEDS: LEVALBUTEROL NEBS 0.63 MG/3 ML VIAL INH SCH ×3 (00:02→16:41)
[2017-06-19] MEDS ORDERED: RIVAROXABAN 10 MG TAB PO ONE (00:07)
[2017-06-19] MEDS ORDERED: RIVAROXABAN 10 MG TAB PO SCH (09:00)
[2017-06-19] MEDS: POLYETHYLENE GLYCOL 3350 17 GM PCKT PO SCH (09:34)
[2017-06-19] MEDS: SPIRONOLACTONE 25 MG TAB PO SCH (09:34)
[2017-06-19] MEDS: METOPROLOL SUCCINATE XL 25 MG TAB PO SCH (09:34)
[2017-06-19] MEDS: PROPAFENONE 150 MG TAB PO SCH ×2 (09:34→20:38)
[2017-06-19] MEDS: OMEPRAZOLE CAP 20 MG CAP PO SCH (09:35)
[2017-06-19] MEDS: FUROSEMIDE INJ 40 MG/4 ML VIAL IV SCH ×2 (09:35→11:30)
[2017-06-19] MEDS: SERTRALINE HCL 12.5 MG PO SCH (09:36)
[2017-06-19] MEDS: traMADol HCL 50 MG TAB PO PRN ×2 (12:48→23:22)
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
[2017-06-19] MEDS ORDERED: NITROGLYCERIN 0.2 MG/HR PATCH TD SCH (18:00)
[2017-06-19] MEDS: RIVAROXABAN 10 MG TAB PO SCH (18:13)
[2017-06-19] MEDS: ACETAMINOPHEN 325 MG TAB PO PRN (18:16)
--- NOTE | 2017-06-19 19:48 | PCM.CORE ---
Physician DVT/VTE - Prophylaxis Currently: Patient already on anticoagulation therapy - Nurse DVT Assessment & Total Each Risk Factor Represents 3 Points: Age over 75 years DVT Assessment Score: 3 - 5 or more Very High Risk Treatments: Early Ambulation *, Sequential Compression Device
--- NOTE | 2017-06-19 21:33 | PN ---
DATE: 06/19/17 SUPERVISING PHYSICIAN: Vahid Ortega M.D. SUBJECTIVE: The patient is resting in bed this morning with her daughter present. She appears to be comfortable. She has had some continued intermittent abdominal discomfort. A consultation with Dr. Teixeira has been arranged. Will await those findings. She has been without any nausea or vomiting. OBJECTIVE: VITAL SIGNS: Temperature 98.3, pulse 99, blood pressure 145/78, respirations 16, satting 99% on room air. I's and O's show a negative balance of 1430 with 420 in, 1850 out. She has had 1 bowel movement. Weight is 63.5 kg. CHEST: Lungs are clear to auscultation. HEART: Regular rate and rhythm. ABDOMEN: Soft, non-tender. EXTREMITIES: No clubbing, cyanosis or edema. NEUROLOGIC: She remains confused but according to her daughter is at her near baseline normal mental status which is pleasantly confused secondary to dementia. LABORATORY STUDIES: White count shows to be 4,000, hemoglobin 14.1, hematocrit 41.6, platelet count 229,000. Differential shows to be without a left shift. Chemistries today show sodium has improved to 129 with BUN 13, creatinine 0.96, glucose 91, calcium 8.6. She did have elevated troponin which was 0.09 and a repeat 6 hours post showed that it was returning to baseline status and was at 0.07. C reactive protein was less than 0.5. EKG today showed a sinus right with a first degree AV block unchanged compared to previous 12-lead done in November 2016. RADIOLOGY: No additional radiographic studies since last CT that revealed bilateral hydronephrosis which is being followed by Dr. Teixeira. ASSESSMENT: 1. Chronic hyponatremia acutely worsening as an outpatient being symptomatic. 2. Chronic dementia with significant disability and exacerbated by the underlying hyponatremia. 3. History of hypertension. 4. Abdominal pain on admission nonspecific with findings on CT showing bilateral hydronephrosis and hydroureter with concerns for urinary retention being followed by Dr. Teixeira. 5. 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 6. History of multiple pulmonary embolisms requiring IVC filter. 7. History of diverticulosis. 8. History of osteoporosis. 9. History of peripheral vascular disease. 10. History of atrial fibrillation with chronic anticoagulation with Xarelto having been initiated after pulmonary emboli. 11. Elevated troponin, uncertain etiology, likely secondary to acute fluid overload that is associated with hyponatremia with the patient denying any chest pain and EKG showing no acute changes. PLAN: Will continue with current plan of care with repeat of BMP this afternoon and resume IV fluids according to that result. Will also follow her troponins and anticipate those returning to normal baseline status. She remains on a fluid restriction. Will await Dr. Garcia' findings on his consultation and anticipate an additional 24 to 48 hours hospitalization for further monitoring and treatment of her underlying hyponatremia and addressing the hydronephrosis. Until discharge, will continue to monitor and treat appropriately. #[id number] [facility]
[2017-06-20] MEDS: OMEPRAZOLE CAP 20 MG CAP PO SCH (06:04)
[2017-06-20] MEDS: ACETAMINOPHEN 325 MG TAB PO PRN (06:04)
[2017-06-20] MEDS: LEVALBUTEROL NEBS 0.63 MG/3 ML VIAL INH SCH ×3 (07:20→16:20)
[2017-06-20] MEDS: METOPROLOL SUCCINATE XL 25 MG TAB PO SCH (08:47)
[2017-06-20] MEDS: POLYETHYLENE GLYCOL 3350 17 GM PCKT PO SCH (08:47)
[2017-06-20] MEDS: PROPAFENONE 150 MG TAB PO SCH ×2 (08:48→21:04)
[2017-06-20] MEDS: FUROSEMIDE INJ 40 MG/4 ML VIAL IV SCH (08:48)
[2017-06-20] MEDS: SPIRONOLACTONE 25 MG TAB PO SCH (08:48)
[2017-06-20] MEDS: KCL 20 MEQ/NS 1,000 ML IVS PRN ×2 (09:37→21:48)
[2017-06-20] MEDS: REMOVE OLD PATCH TOP SCH (09:37)
[2017-06-20] MEDS: SERTRALINE HCL 12.5 MG PO SCH (13:09)
[2017-06-20] MEDS: RIVAROXABAN 10 MG TAB PO SCH (18:07)
--- NOTE | 2017-06-20 19:23 | PN ---
DATE: 06/20/17 SUPERVISING PHYSICIAN: Vahid Ortega M.D. SUBJECTIVE: The patient continues with a Wallis in place with no complications. She, after seeing Dr. Teixeira, had a Wallis placed and it was noted that she had well over 600 mL postvoid trial. She remains afebrile. Has had no nausea or vomiting. OBJECTIVE: VITAL SIGNS: Temperature 98.1, pulse 86, blood pressure 158/72, respirations 17, satting 99% on room air. I's and O's show a negative balance of 520 with 1130 in, 1650 out. She has had a couple of bowel movements. Weight is 53.5 kg. CHEST: Lungs were clear to auscultation. HEART: regular rate and rhythm. ABDOMEN: Soft, non-tender. Positive bowel sounds. EXTREMITIES: No clubbing, cyanosis or edema. NEUROLOGIC: She remains pleasantly confused. She is alert to her family members and answers simple questions. There is no notable neurologic deficits on exam. LABORATORY STUDIES: Chemistries today show a persistent hyponatremia with sodium 128, potassium was down to 3.5, BUN and creatinine remain within normal limits with creatinine 0.81. Serum osmolality remains decreased at 256. Troponin continues to show a return to baseline with the last one being 0.06. Urinalysis with Wallis catheter placed showed to be within normal limits with no signs of infection. RADIOLOGY: Ultrasound of the bladder and kidneys is pending for tomorrow. ASSESSMENT: 1. Chronic hyponatremia acutely worsening as an outpatient becoming symptomatic requiring hospitalization for IV therapy with both hypertonic saline and normal saline showing improvement. 2. Chronic dementia with some significant disability and exacerbated by underlying hyponatremia. 3. History of hypertension, stable. 4. Abdominal pain on admission with CT findings showing bilateral hydronephrosis and hydroureter with notable urinary retention as Wallis catheter placed with postvoid volume of over 600 mL and the patient being followed by Dr. Teixeira. 5. 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 6. History of pulmonary embolism receiving an IVC filter. 7. History of diverticulosis. 8. History of osteoporosis. 9. History of peripheral vascular disease. 10. History of atrial fibrillation with chronic anticoagulation on Xarelto after having been initiated after the pulmonary emboli. 11. Elevated troponin, uncertain etiology felt to be secondary to acute fluid overload associated with hyponatremia with the patient denying any chest pains and EKG showing no acute changes with troponin returning to baseline levels. PLAN: Will plan to do an ultrasound of the bladder and reassess for the hydroureter and hydronephrosis with decision of either removing the catheter or discharging the patient home to see Dr. Teixeira with the catheter in place. She remains on fluid restriction and low dose Lasix daily. I did start her on some normal saline continued at 80 an hour with some potassium with close monitoring and repeat laboratory studies in the morning. Until discharge, will continue to monitor and treat appropriately. #[id number] [facility]
[2017-06-20] MEDS ORDERED: SERTRALINE HCL 12.5 MG PO SCH (21:00)
[2017-06-20] MEDS ORDERED: NITROGLYCERIN 0.2 MG/HR PATCH TD SCH (21:00)
[2017-06-21] MEDS: LEVALBUTEROL NEBS 0.63 MG/3 ML VIAL INH SCH ×3 (00:21→17:23)
[2017-06-21] MEDS: OMEPRAZOLE CAP 20 MG CAP PO SCH (06:26)
[2017-06-21] MEDS: METOPROLOL SUCCINATE XL 25 MG TAB PO SCH (08:58)
[2017-06-21] MEDS: SPIRONOLACTONE 25 MG TAB PO SCH (08:58)
[2017-06-21] MEDS: FUROSEMIDE INJ 40 MG/4 ML VIAL IV SCH (08:59)
[2017-06-21] MEDS: PROPAFENONE 150 MG TAB PO SCH (08:59)
[2017-06-21] MEDS: POLYETHYLENE GLYCOL 3350 17 GM PCKT PO SCH (08:59)
[2017-06-21] MEDS: REMOVE OLD PATCH TOP SCH (09:10)
[2017-06-21] MEDS: KCL 20 MEQ/NS 1,000 ML IVS PRN (09:52)
[2017-06-21 09:56] VITALS: O2SAT 98
[2017-06-21] MEDS: traMADol HCL 50 MG TAB PO PRN (10:54)
--- NOTE | 2017-06-21 12:27 | US ---
EXAM DESCRIPTION: Bladder CLINICAL HISTORY: 86 years Female, Hydronephrosis COMPARISON: CT abdomen pelvis June 18, 2017. TECHNIQUE: Sonographic imaging of the retroperitoneal structures including the bladder was performed by the copyright manager. Images were submitted for review. FINDINGS: Right kidney is within normal limits for size measuring approximately 10.0 x 4.2 x 4.2 cm. There is pelvicalyceal dilatation similar to most recent comparison CT when accounting for differences in modality. Renal cortical thickness is within normal limits. Mild diffuse increased cortical echogenicity suggesting medical renal disease. Occasional benign cysts are noted. Left kidney measures approximately 11.6 x 4.4 x 4.4 cm respectively. Normal cortical thickness is present. Usual fibrofatty hilar replacement. Mild diffuse increased cortical echogenicity can be seen with medical renal disease. Mild pelviectasis is noted. Benign cysts are noted. No aggressive renal lesions. A Wallis catheter is present within the bladder. There is mild distention of the bladder lumen. IMPRESSION: Persistent right-sided pelvocaliectasis versus extrarenal pelvis and peripelvic cysts. Relatively stable left-sided extrarenal pelvis. Wallis catheter positioned within the bladder with a small residual bladder distention improved with respect to comparison CT. Medical renal disease. Benign cysts of the kidneys. Electronically signed by: Terry Marrero MD 06/21/2017 12:26 PM [employer]
[2017-06-21] MEDS ORDERED: BISACODYL SUPPOSITORY 10 MG PR ONE (13:13)
[2017-06-21] MEDS ORDERED: FUROSEMIDE INJ 100 MG/10 ML VIAL ONE (14:25)
[2017-06-21] MEDS ORDERED: SODIUM CHLORIDE 0.9% 100ML 100 ML IVPB ONE (14:25)
[2017-06-21] MEDS: RIVAROXABAN 10 MG TAB PO SCH (15:03)
[2017-06-21 15:21] VITALS: BP 121/70; TEMP 97
--- NOTE | 2017-06-22 12:25 | DS ---
SUPERVISING PHYSICIAN: Vahid Ortega M.D. DISCHARGE DIAGNOSIS: 1. Chronic hyponatremia acutely worsening as an outpatient becoming symptomatic requiring hospitalization for IV therapy with both hypertonic saline and normal saline showing improvement but persistently hyponatremic after replacement felt to be chronic secondary to Spironolactone with the patient showing to be stable. 2. Chronic dementia with some significant disability and exacerbated by underlying hyponatremia with the patient at baseline mental status prior to discharge per family members. 3. History of hypertension, stable. 4. Bilateral hydronephrosis and hydroureter with notable urinary retention requiring Wallis placement with postvoid volume of over 600 and the patient being followed by Dr. Teixeira with repeat ultrasound showing a persistent right sided hydronephrosis and hydroureter continued. 5. 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 6. History of pulmonary embolism receiving an IVC filter. 7. History of diverticulosis. 8. History of osteoporosis. 9. History of peripheral vascular disease. 10. History of atrial fibrillation with chronic anticoagulation on Xarelto and having been initiated after the pulmonary embolism showing a controlled ventricular rate on current admission prior to discharge. 11. Elevated troponin, uncertain etiology felt to be secondary to acute fluid overload associated with hyponatremia with the patient denying any chest pains and EKG showing no acute changes with troponin returning to baseline levels. 12. Urinary retention, unknown etiology requiring Wallis placement and followed by Dr. Teixeira. REASON FOR HOSPITALIZATION: Ms. Reid is an 86 year-old female patient that was brought to the Emergency Room initially on 06/18/17 by her daughters due to the patient having progressively worsened with general symptoms for the last 3 days. The patient had complained of abdominal pain in various locations which varied from time to time. She had had a decreased appetite. She has had to get up and down many times during the night due to need to go to the bathroom. The day before admission, it was noted that she had some blood on her Depends and did not know what the actual source was. Urinalysis recently was checked and was within normal limits. In the Emergency Room, she was found to have significant hyponatremia of 121 with it being 130 on the most recent determination. CT scan of the abdomen revealed bilateral hydronephrosis with possible moderate obstructive symptoms involving the UPJ junction. The patient is followed closely by Dr. Ortega as well as was seen in consultation by Dr. Teixeira as well as her inside wirer is Dr. Valdez. She did not have any nausea or vomiting prior to admission. She had almost passed out when she was changing positions and whether or not this was related to a hypotension is unknown. Because of the patient's symptomatic decline, her worsening hyponatremia even that was treated since her last hospital stay which was in November of this year, the patient was admitted to the hospital for stabilization in an attempt to prevent worsening of the hydroureter and hydronephrosis. She was admitted in stable condition. LABORATORY STUDIES: CBC on admission and discharge was within normal limits, at discharge was 4,000. Hemoglobin and hematocrit were stable, at discharge was 14.1 and 41.6, platelet count was 229,000 with differential showing to be within normal limits. Chemistries showed initial sodium on admission of 121 with potassium 4.3. After replacement with hypertonic saline and IV infusions, she stabilized her sodium and at discharge was 128. Potassium normalized to 4.0. Creatinine and BUN were stable, at discharge creatinine was 0.76. Calcium was 8.5. She did have 2 troponins that were elevated, one at 0.09 and then 3 hours later had gone down to 0.07, and then continued to show decline and was down to 0.06. She had a C reactive protein that was less than 0.5. BNP was elevated at 301. TSH was 1.06. Initial bilirubin was slightly elevated at 1.4. Her urinalysis initially showed 2 of bilirubin, otherwise within normal limits and a second specimen after catheterization showed to be within normal limits with no signs of infection. She had 2 occult bloods that were both negative. MICROBIOLOGY: No microbiology specimens collected. RADIOLOGY: Initially she had an abdominal CT in the E. R. with contrast and per radiology interpretation there was note of bilateral hydronephrosis most suggestive of UPJ obstruction moderately severe on the right and moderate on the left, bilateral benign renal cystic disease noted. Scoliosis and advanced degenerative changes of the thoracolumbar spine and prior right hip replacement , many age-indeterminate lower thoracic and lumbar spine compression deformities as noted with grade 1 degenerative spondylolisthesis also evident at L5 to S1. Indwelling vena cava filter was noted. There was no evidence of bowel obstruction or intraabdominal mass or ventral or inguinal hernias. Please see that final report for full details. She also had a chest x-ray in the Emergency Department single view chest and per radiology interpretation showed mild central pulmonary vascular engorgement. On the morning before discharge, she had a bladder ultrasound to fully assess the hydroureter and hydronephrosis previously on admission with radiology indicating a persistent right sided pelvocaliectasis versus an extrarenal pelvis and peripelvic cyst with relatively stable left sided extrarenal pelvis. Wallis catheter was noted within the bladder. Also of note was medical renal disease and benign cyst of the kidneys. Please see that report for full details. HOSPITAL COURSE: Ms. Reid was admitted from the E. R. on 06/18/17 to the Medical/Surgical floor for treatment of underlying abdominal pain and hyponatremia. She was initially given 300 mL of hypertonic saline and then continued on the IV fluids with normal saline and showed good improvement in stabilization of her sodium levels. She had further workup by Dr. Teixeira in consultation who felt that most likely she was having urinary retention and requested that a bladder pre and postvoiding be done with the patient showing only 50 to 100 mL with voiding and 600 after with the catheter remaining in place fo acute urinary retention. She progressed well and was felt on the day after the ultrasound was completed that she was stable enough to be discharged home to followup with Dr. Teixeira in the next week, therefore she was discharged in stable condition. PLAN: Ms. Reid was discharged on 06/21/17 with instructions to followup both with Dr. Ortega in [address] Teixeira this following Saturday on the , and to call to gather a time frame for followup. She was discharged home with a Wallis catheter with teaching provided and has ongoing home health for reinforcement. The Wallis is to remain in place until she sees Dr. Teixeira in clinic. She is to call home health or Dr. Ortega' office should she have any questions or return to the clinic or E. R. for any concerning symptoms. At discharge, there were no new medication. All other medications prior to admission were continued. Diet at discharge was regular diet as tolerated. Activity is with [employer] [place] [employer]. Condition at discharge was stable and improved. #[id number] [facility]
== END 2017-06-21 16:11 | disposition home or self-care (01) ==
LOC: ER 15:17 → OBSVTOIN 19:35 → INTOOBSV 19:35 → MS 19:35
PROVIDERS: ADMIT Emergency Medicine; ATTEND Nurse Practitioner Family
DX: E87.1 Hypo-osmolality and hyponatremia (principal); R41.82 Altered mental status, unspecified; N13.30 Unspecified hydronephrosis; R33.9 Retention of urine, unspecified; R35.1 Nocturia; F03.90 Unspecified dementia, unspecified severity, without behavioral disturbance, psychotic disturbance, mood disturbance, and anxiety; I10 Essential (primary) hypertension; M47.816 Spondylosis without myelopathy or radiculopathy, lumbar region; M81.0 Age-related osteoporosis without current pathological fracture; I48.91 Unspecified atrial fibrillation; R79.89 Other specified abnormal findings of blood chemistry; I73.9 Peripheral vascular disease, unspecified; K57.30 Diverticulosis of large intestine without perforation or abscess without bleeding; I44.0 Atrioventricular block, first degree; Z79.01 Long term (current) use of anticoagulants; Z79.899 Other long term (current) drug therapy; Z88.6 Allergy status to analgesic agent; Z86.711 Personal history of pulmonary embolism
CPT/HCPCS: 36415 ×7; 71010; 74160; 76857; 80048 ×5; 80076; 81001 ×2; 82270 ×2; 82550; 82553; 83880; 84443; 84484 ×4; 85025 ×2; 86140; 93005; 94640 ×8; 94760 ×6; 96365; 96366; 96375; 96376 ×2; 99284; G0463; J1940 ×3; J3480 ×3; J7030; J7050; J7614 ×8; J7799

== ENCOUNTER → 2017-07-04 | Outpatient (CLI) | payer MEDICARE | END | disposition home or self-care (01) | LOC: YCHH 09:54 | PROVIDERS: ATTEND Family Medicine | DX: N39.0 Urinary tract infection, site not specified (principal) ==

== ENCOUNTER → 2017-07-25 | Outpatient (CLI) | payer MEDICARE | END | disposition home or self-care (01) | LOC: YCHH 10:53 | PROVIDERS: ATTEND Family Medicine | DX: N39.0 Urinary tract infection, site not specified (principal) ==

== ENCOUNTER 2017-08-02 16:01 | Inpatient (IN) | payer MEDICARE ==
--- NOTE | 2017-08-02 16:48 | ED.PDOC ---
History of Present Illness - General Chief Complaint: Syncope/Near Syncope Stated Complaint: SYNCOPE Time Seen by Provider: 08/02/17 16:33 Source: patient, family Exam Limitations: physical impairment - History of Present Illness Timing/Duration: 4-6 hours Severity: severe Improving Factors: nothing Worsening Factors: other - STANDING Associated Symptoms: syncope, other - PT HAD SYNCOPAL EVENT UPON STANDING AND WAS UNRESPONSIVE FOR SEVERAL MINUTES THEN HAD A SECOND NEAR SYNCOPAL EVENT AGAING WHILE ATTEMPTING TO STAND TO USE THE RESTROOM. PT HAD SIMILAR SYMPTOMS LAST APRIL WITH A 4 DAY HOSPITAL STAY AT [facility] AND IT WAS DETERMINED TO BE HER BLOOD PRESSURE MEDICATION CAUSING THAT EPISODE. PT HAS HAD NO NEW CHANGES IN MEDICATION Allergies/Adverse Reactions: Allergies Fentanyl Allergy (Verified 06/18/17 19:03) Other Elevated BP, flushing Lorazepam [From Ativan] Allergy (Verified 06/18/17 19:03) Other causes flushing Morphine Adverse Reaction (Verified 06/18/17 19:03) Other causes hallucinations Home Medications: Ambulatory Orders Fenofibrate [Tricor] 145 mg PO DAILY 11/07/16 Memantine HCl [Namenda Xr] 28 mg PO DAILY 11/07/16 Metoprolol Succinate [Toprol Xl] 25 mg PO DAILY 11/07/16 Propafenone HCl 150 mg PO BID 11/07/16 Rivaroxaban [Xarelto] 10 mg PO DAILY 11/07/16 Spironolactone 25 mg PO DAILY 11/07/16 Tramadol HCl 50 mg PO BID PRN 11/07/16 Acetaminophen [Tylenol] 500 mg PO QID PRN 06/18/17 Calcium Carbonate-Cholecalcife [Os-Kayden 500-600 mg-Unit] 1 chw PO BID 06/18/17 Esomeprazole Magnesium [Nexium] 40 mg PO DAILY 06/18/17 Polyethylene Glycol 3350 [Miralax] 17 gm PO DAILY PRN 06/18/17 Sertraline HCl [Zoloft] 12.5 mg PO DAILY 06/18/17 Review of Systems - Review of Systems Constitutional: States: see HPI EENTM: States: see HPI Respiratory: States: no symptoms reported Cardiology: States: syncope Gastrointestinal/Abdominal: States: no symptoms reported Genitourinary: States: no symptoms reported Musculoskeletal: States: no symptoms reported Skin: States: no symptoms reported Neurological: States: no symptoms reported Endocrine: States: no symptoms reported Hematologic/Lymphatic: States: no symptoms reported All other Systems: Reviewed and Negative Past Medical History (General) - Patient Medical History Hx Seizures: No Hx Stroke: No Hx Dementia: Yes Hx Asthma: No Hx of COPD: No Hx Cardiac Disorders: Yes Hx Congestive Heart Failure: No Hx Pacemaker: No Hx Hypertension: Yes Hx Diabetes: No Hx Gastroesophageal Reflux: Yes Hx Renal Disease: Yes - ONLY 1 KIDNEY WORKING Hx MRSA: No - Vaccination History Hx Influenza Vaccination: Yes Hx Pneumococcal Vaccination: Yes - Social History Hx Tobacco Use: Yes Hx Alcohol Use: No Hx Substance Use: No Hx Substance Use Treatment: No Hx Depression: No Hx Physical Abuse: No Hx Emotional Abuse: No - Female History Patient : No Family Medical History - Family History Mother Family History: No Known Living Status: Hx Cardiac Disease: Yes - dad Hx Family Cancer: Yes - dad-prostate,pancreas Physical Exam - Physical Exam General Appearance: Alert, Emaciated, Frail, No apparent distress, Well Groomed , Well Hydrated Eye Exam: bilateral normal, bilateral other - CATARACT SURGERY Ears, Nose, Throat: normal ENT inspection, normal pharynx, hearing decreased Neck: non-tender, full range of motion, supple, normal inspection Respiratory: chest non-tender, no respiratory distress, no accessory muscle use , rhonchi Cardiovascular/Chest: normal peripheral pulses, regular rate, rhythm, no edema, no gallop, no JVD, no murmur Peripheral Pulses: radial,right: 1+, radial,left: 1+, dorsalis pedis,right: 1+, dorsalis pedis,left: 1+ Gastrointestinal/Abdominal: normal bowel sounds, non tender, soft, no organomegaly, no pulsatile mass Rectal Exam: deferred Back Exam: normal inspection, no CVA tenderness, no vertebral tenderness Extremity: normal range of motion, non-tender, normal inspection Neurologic: no motor/sensory deficits, alert, normal mood/affect, oriented x 3 Skin Exam: normal color, warm/dry Progress - Progress Progress: 08/02/17 17:16 PT WITH SIGNIFICANTLY POSITIVE TILT WITH STANDING SBP FROM 160 TO 93!!! - EKG/XRAY/CT EKG: Sinus, Unchanged from - JUN 2017 Departure - Departure Clinical Impression: Syncope and collapse, Orthostatic hypotension, Hyponatremia Disposition: Admit Patient Condition: Fair Departure Forms: ED Discharge - Pt. Copy, Patient Portal Self Enrollment Referrals: Vahid Ortega MD [Primary Care Provider] - 1-2 Weeks Home Medications: Ambulatory Orders Fenofibrate [Tricor] 145 mg PO DAILY 11/07/16 Memantine HCl [Namenda Xr] 28 mg PO DAILY 11/07/16 Metoprolol Succinate [Toprol Xl] 25 mg PO DAILY 11/07/16 Propafenone HCl 150 mg PO BID 11/07/16 Rivaroxaban [Xarelto] 10 mg PO DAILY 11/07/16 Spironolactone 25 mg PO DAILY 11/07/16 Tramadol HCl 50 mg PO BID PRN 11/07/16 Acetaminophen [Tylenol] 500 mg PO QID PRN 06/18/17 Calcium Carbonate-Cholecalcife [Os-Kayden 500-600 mg-Unit] 1 chw PO BID 06/18/17 Esomeprazole Magnesium [Nexium] 40 mg PO DAILY 06/18/17 Polyethylene Glycol 3350 [Miralax] 17 gm PO DAILY PRN 06/18/17 Sertraline HCl [Zoloft] 12.5 mg PO DAILY 06/18/17
--- NOTE | 2017-08-02 17:08 | RAD ---
EXAM DESCRIPTION: Chest,1 View CLINICAL HISTORY: SYNCOPE COMPARISON: 06/18/2017 FINDINGS: Cardiac and aortic silhouettes appear similar. There is again ectasia of the aorta. 6 mm nodule is at the left lateral lung base. There is no focal parenchymal or pleural disease. IMPRESSION: No evidence of acute cardiopulmonary disease. Electronically signed by: Ron Ervin 08/02/2017 5:07 PM [facility]
[2017-08-02] MEDS ORDERED: SODIUM CHLORIDE 0.9% 500ML 500 ML IVS ONE (17:40)
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
[2017-08-02] MEDS ORDERED: SODIUM CHLORIDE 0.9% (FLUSH) 10 ML SYG IV PRN (19:32)
[2017-08-02] MEDS ORDERED: MAGNESIUM HYDROXIDE 30 ML UD PO PRN (19:38)
[2017-08-02] MEDS ORDERED: ACETAMINOPHEN 325 MG TAB PO PRN (19:38)
[2017-08-02] MEDS ORDERED: FUROSEMIDE INJ 20 MG/2 ML VIAL IV ONE (19:41)
[2017-08-02] MEDS ORDERED: IV SET AND CAP CHANGE INJ INJ SCH (20:00)
[2017-08-02] MEDS: PROPAFENONE 150 MG TAB PO SCH (22:34)
[2017-08-02] MEDS ORDERED: RIVAROXABAN 10 MG TAB ONE (22:44)
[2017-08-02] MEDS: SODIUM CHLORIDE 0.9% 1000ML 1,000 ML IVS PRN (22:45)
[2017-08-02] MEDS: MEMANTINE HCL 28 MG PO SCH (22:51)
[2017-08-02] MEDS: RIVAROXABAN 10 MG TAB PO SCH (22:52)
[2017-08-03] MEDS: OMEPRAZOLE CAP 20 MG CAP PO SCH (06:05)
[2017-08-03] MEDS ORDERED: RIVAROXABAN 10 MG TAB PO SCH (09:00)
[2017-08-03] MEDS ORDERED: SERTRALINE HCL 12.5 MG PO SCH (09:00)
[2017-08-03] MEDS ORDERED: FUROSEMIDE INJ 20 MG/2 ML VIAL IV SCH (09:00)
[2017-08-03] MEDS ORDERED: NON-FORMULARY MEDICATION 1 EA MIS (Memantine Hcl [Namenda Xr] 28 MG) PO SCH (09:00)
[2017-08-03] MEDS: METOPROLOL SUCCINATE XL 25 MG TAB PO SCH (09:42)
[2017-08-03] MEDS: POLYETHYLENE GLYCOL 3350 17 GM PCKT PO SCH (09:44)
[2017-08-03] MEDS: PROPAFENONE 150 MG TAB PO SCH ×2 (09:44→21:04)
--- NOTE | 2017-08-03 14:20 | PN ---
DATE: 08/03/17 SUBJECTIVE: The patient appears to be much more alert today than yesterday. Yesterday, she was unable to fully answer some of the questions offered to her. She is still having a significant positive tilt on her blood pressure and vitals. She is eating much better. She is moving around. Still having some difficulty ambulating but no significant dizziness or tendency towards syncope at this time compared to yesterday. She was admitted for specific treatment to assist with symptomatic hyponatremia with altered level of consciousness and significant weakness as well as syncope. OBJECTIVE: Afebrile, pulse 70, blood pressure is variable with a blood pressure 164/89 supine down to 99/63 standing. Her pulse is not directly attached but appears to not be significantly changed possibly suggesting an autonomic dysfunction. Pulse oximetry is 99% on room air. Weight is checked on the bed scale at 48.1 kilos. LUNGS: Relatively clear. HEART: Tones are regular. ABDOMEN: Soft with fairly good, in fact active bowel tones. She is looking around, has improved color and is able to respond appropriately to questioning. Daughter is also present to assist. LABORATORY STUDIES: White count is 4,900, hemoglobin has dropped with gentle hydration to 13.1. Chemistries show sodium is up from 127 to 130 with improved osmolality of 255 up to 263. Potassium is 3.7 and supplementation is started. BUN 14, creatinine 0.86, troponin 0.06 yesterday. Nasal culture for Influenza was negative. ASSESSMENT: 1. Acute syncopal episode with complete loss of consciousness on one occasion and near syncope on another occasion during the same day of admission. Possibly related to a significant symptomatic hyponatremia with no evidence of underlying cardiac dysrhythmia evident and with a significant postural hypotension response to change in position noted. 2. Hyponatremia with sodium up from 127 to 130 showing some improvement with efforts to prevent too rapid of a correction possibly related to Spironolactone diuretic being used as an outpatient which is being held at this time as well as possibility of excessive fluid free water overload. 3. Moderate dehydration. 4. Severe deafness and decreased hearing. 5. 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 Teixeira in the urology clinic with appointment next Saturday. 6. Right medial ankle ulceration traumatic in nature associated with a hematoma caused by her shoe showing some healing but continued treatment noted. PLAN: Will continue with some diminished diuresis and stop the Spironolactone. Recheck sodium in the morning. Will increase activity level. Recheck tilt vitals with blood pressure and pulse in the morning. Add potassium for supplementation. Will suggest an outpatient renal sonogram with a postvoid bladder urine volume study if possible on Saturday, the day before her next visit with Dr. Lenny Teixeira in the urology clinic in the hospital in [place]. These results will be shared with Dr. Ortega and Dr. Teixeira. Special attention to avoid syncope, especially with the history of significant tilt which may be indicative of an underlying autonomic dysfunction. If this continues, may need to stop the beta blockade and consider another preparation such as Panda inhibitor or a calcium channel treatment program for the underlying hypertension which is still present. #[id number] [facility]
[2017-08-03] MEDS: SODIUM CHLORIDE 0.9% 1000ML 1,000 ML IVS PRN ×2 (18:00→18:01)
[2017-08-03] MEDS ORDERED: SERTRALINE HCL 50 MG TAB PO SCH (21:00)
[2017-08-03] MEDS: NON-FORMULARY MEDICATION 1 EA MIS PO SCH (21:03)
[2017-08-03] MEDS: MEMANTINE HCL 28 MG PO SCH (21:03)
[2017-08-03] MEDS: RIVAROXABAN 10 MG TAB PO SCH (21:04)
[2017-08-04] MEDS: OMEPRAZOLE CAP 20 MG CAP PO SCH (06:04)
[2017-08-04] MEDS: POTASSIUM CHLORIDE 10 MEQ TAB PO SCH (07:56)
[2017-08-04] MEDS: FUROSEMIDE 40 MG TAB PO SCH (09:41)
[2017-08-04] MEDS: PROPAFENONE 150 MG TAB PO SCH ×2 (09:41→20:46)
[2017-08-04] MEDS: METOPROLOL SUCCINATE XL 25 MG TAB PO SCH (09:41)
[2017-08-04] MEDS: POLYETHYLENE GLYCOL 3350 17 GM PCKT PO SCH (09:41)
[2017-08-04] MEDS: SODIUM CHLORIDE 0.9% 1000ML 1,000 ML IVS PRN (12:17)
[2017-08-04] MEDS: NON-FORMULARY MEDICATION 1 EA MIS PO SCH (20:46)
[2017-08-04] MEDS: MEMANTINE HCL 28 MG PO SCH (20:46)
[2017-08-04] MEDS: RIVAROXABAN 10 MG TAB PO SCH (20:46)
--- NOTE | 2017-08-04 22:02 | PN ---
DATE: 08/04/17 SUPERVISING PHYSICIAN: López Alas M.D. SUBJECTIVE: The patient has shown good response to therapy, although she continues to have some positive tilts, although not as bad as previous attempts. Her appetite is improving. She has not had any additional syncopal episodes. I discussed at length with the patient's daughter the decision to treat an additional 24 hours with ongoing sodium replacement and further medical management tomorrow in regards to her medications after talking to Dr. Ortega, her primary care provider. OBJECTIVE: VITAL SIGNS: She remains afebrile, temperature 97.1, pulse 71, blood pressure 159/77, respirations 18, satting 99% on room air. I's and O's show a negative balance of 259 with 1541 in, 1800 out. Weight is 48.1 kg. CHEST: Lungs were clear to auscultation bilaterally. HEART: Regular rate and rhythm. ABDOMEN: Soft, non-tender. Positive bowel sounds. EXTREMITIES: No clubbing, cyanosis or edema. NEUROLOGIC: She was alert and oriented times three. Tilt vital signs this morning showed supine blood pressure 159/77 with heart rate of 66, sitting went to 160/89 with pulse of 71, and standing position went to 113/ 64 with pulse of 72. LABORATORY STUDIES: Chemistries show a persistent hyponatremia with sodium 129 , BUN 14, creatinine 0.67, glucose 88, calcium 8.3. ASSESSMENT: 1. Acute syncopal episode with complete loss of consciousness on one separate occasion with some near syncopal episodes on another occasion on the same day prior to admission felt to be related to significant symptomatic hyponatremia with no significant underlying cardiac dysrhythmia event with significant tilt vitals. 2. Hyponatremia with sodium showing some improvement after stopping Spironolactone and fluid restrictions. 3. Moderate dehydration. 4. Severe deafness and decreased hearing. 5. 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 Teixeira in the urology clinic with appointment this coming Saturday. 6. Right medial ankle ulceration traumatic in nature associated with a hematoma caused by shoe showing some healing but continued treatment needed. PLAN: Will continue to monitor closely tonight with anticipation of hopefully being able to discharge tomorrow. Will recheck tilts in the morning. Will continue with IV fluids in efforts to further increase her sodium levels. I will talk with Dr. Ortega in the morning in regards to medication regimen and changing the Spironolactone as well as the Zoloft. Will also need to investigate whether or not the patient needs further ultrasound prior to seeing Dr. Teixeira this Saturday as he has already seen Dr. Teixeira in followup once prior to this admission. Again, will discuss the patient's regimen with anticipation of discharging tomorrow, and prior to discharge considerations for changing from a beta diana as she is showing positive tilts but is now normovolemic and improved sodium with considerations for changing to an Panda inhibitor or calcium channel diana in regards to management of her hypertension. #[id number] [facility]
[2017-08-05] MEDS: OMEPRAZOLE CAP 20 MG CAP PO SCH (06:15)
[2017-08-05] MEDS: METOPROLOL SUCCINATE XL 25 MG TAB PO SCH (08:19)
[2017-08-05] MEDS: PROPAFENONE 150 MG TAB PO SCH (08:20)
[2017-08-05] MEDS: FUROSEMIDE 40 MG TAB PO SCH (08:21)
[2017-08-05] MEDS: POTASSIUM CHLORIDE 10 MEQ TAB PO SCH (08:21)
[2017-08-05] MEDS: POLYETHYLENE GLYCOL 3350 17 GM PCKT PO SCH (08:22)
[2017-08-05 09:44] VITALS: BP 144/80; TEMP 97.8; O2SAT 100
--- NOTE | 2017-08-06 10:15 | DS ---
SUPERVISING PHYSICIAN: Vahid Ortega MD DISCHARGE DIAGNOSIS: 1. Acute syncopal episode with reported complete loss of consciousness on one occasion with several near syncopal episodes on another occasion on the same day prior to admission, felt to be related to significant symptomatic hyponatremia and some hypovolemia with no evidence of underlying cardiac dysrhythmia, but having initial positive tilt vital signs, but showing improvement prior to discharge. 2. Hyponatremia with sodium showing some improvement after stopping spironolactone and Lasix and fluid restrictions. 3. Moderate dehydration, improved with IV fluids. 4. Severe deafness and decreased hearing. 5. 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 Teixeira in the urology clinic with appointment this coming Saturday and a scheduled renal ultrasound prior to that appointment. 6. Right medial ankle ulceration, traumatic in nature, associated with a hematoma caused by shoe, showing good healing with no complications noted at discharge. REASON FOR HOSPITALIZATION: Ms. Reid is an 87-year-old female patient who was brought to the Emergency Room after having syncopal episodes out twice in one day. The first time was while she was getting out of her elevating chair in order to walk to the bathroom. She grabbed hold of her walker and proceeded to begin to crumple to the floor. She was helped by a relative back to the seat. She did not fall and injure herself, but she was unconscious with her eyes rolling back into her head at the time of the episode. Her first episode of syncope was last April which was treated at [facility] and they found that they were able to reduce some of her blood pressure medicines in an effort to try to prevent it in the future. She had not been eating well as noted by family. She has been drinking some fluids , but is dehydrated. She is cared for by her family at home. She unfortunately has significant dementia which makes it difficult to communicate with her fully. On admission, the patient showed a low sodium in the Emergency Room of 127 with positive tilt vital signs. Therefore, she was admitted for ongoing treatment and evaluation. LABORATORY: CBC on admission was essentially within normal limits with hemoglobin 15.6, hematocrit 46.6, normal white count at 5,300 with platelet count 248, differential within normal limits. At discharge and after treatment with fluids, H&H had dropped some and was down to hemoglobin 13.1 and hematocrit 39.4. White count was 4,900. Everything else was essentially unchanged. Coagulation studies showed PT 24.5 with INR 2.18 with PT-T 34.7 with the patient being on chronic Xarelto. Chemistries initially on admission showed sodium 127. After treatment with fluids, Lasix and fluid restrictions, at discharge her sodium had increased to 130. Potassium was normal at 3.8. BUN 14, creatinine 0.75. Liver functions on admission showed just slightly elevated bilirubin at 1.3, other liver functions within normal limits. She did have an elevated troponin of 0.06 which was just barely above normal limits, but had no complaints of chest pains and was felt to be related to underlying renal dysfunction. No further studies were completed on current admission. Urinalysis showed trace leukocyte esterase, otherwise within normal limits. MICROBIOLOGY: Influenza swab by PCR was negative for both A and B. RADIOLOGY: Chest x-ray in the Emergency Department showed no evidence of acute cardiopulmonary disease. HOSPITAL COURSE: Ms. Reid was admitted on 08/02/17 as noted above for syncopal episodes. She did have positive tilt vital signs initially at time of admission, but after fluid restrictions, additional fluids, improvement of her sodium and tilt vital signs were normal on the date of discharge. She had no syncopal episodes, no abnormal rhythms and was having no further complaints. She was felt stable enough to be discharged to continue with followup in the outpatient setting. PLAN: Ms. Reid was discharged on 08/05/17 with instructions to followup with Dr. Teixeira as scheduled and to have an ultrasound of her renal system prior to that examination, after which time she was to schedule a followup appointment with Dr. Valdez and then Dr. Ortega. She was to resume her home medications as instructed except for note of stopping the spironolactone and decreasing the Lasix to just as needed for lower extremity edema. She was encouraged to go slow when changing positions to prevent any further dizziness or falls and return to the hospital should she have any concerning symptoms or call Dr. Ortega' office. At discharge, no new prescriptions were provided other than the change in spironolactone and Lasix. Diet at discharge was regular diet as tolerated. Activities were to be as per physical therapy at home with [facility]. Condition at discharge was stable and improved. #[id number] [facility]
== END 2017-08-05 13:55 | disposition home health service (06) | DRG 641 ==
LOC: ER 16:01 → MS 19:19 → OBSVTOIN 19:19
PROVIDERS: ADMIT Emergency Medicine; ATTEND Nurse Practitioner Family
DX: E87.1 Hypo-osmolality and hyponatremia (principal); L97.319 Non-pressure chronic ulcer of right ankle with unspecified severity; E86.1 Hypovolemia; E86.0 Dehydration; H91.93 Unspecified hearing loss, bilateral; F03.90 Unspecified dementia, unspecified severity, without behavioral disturbance, psychotic disturbance, mood disturbance, and anxiety; I10 Essential (primary) hypertension; M81.0 Age-related osteoporosis without current pathological fracture; K21.9 Gastro-esophageal reflux disease without esophagitis; Z66 Do not resuscitate; Z86.711 Personal history of pulmonary embolism; Z79.01 Long term (current) use of anticoagulants; Z88.5 Allergy status to narcotic agent

== ENCOUNTER → 2017-08-06 | Outpatient (CLI) | payer MEDICARE ==
--- NOTE | 2017-08-06 21:19 | US ---
EXAM DESCRIPTION: Renal: Ultrasound. CLINICAL HISTORY: RIGHT HYDROURETER AND HYDRONEPHROSIS COMPARISON: None. TECHNIQUE: Transcutaneous scanning: Two-dimensional and Doppler modes. FINDINGS: Right kidney measures 10.2 x 4.0 x 3.1 cm; mid-renal cortical thickness 10 mm. . Lobulated or irregular margin echogenic object with central cyst or low-density measuring 4.7 x 3.5 x 3.0 cm. Upper pole. Increased echogenicity of the cortex. 2.4 x 2.2 x 1.9 cm anechoic cyst in the mid kidney. No hydronephrosis No calcifications. Lobulated and somewhat irregular contour of the kidney with no perinephric fluid. Normal vascularity. Proximal ureter not visualized. Left kidney measures 9.1 x 4.7 x 4.6 cm; mid-renal cortical thickness 12 mm.. echogenicity. No hydronephrosis. No calcifications. Lobulated contour of the kidney with no perinephric fluid. Normal vascularity.. Proximal ureter not visualized. Urinary bladder was visualized. Prevoid volume not determined because patient voided prior to examination. Ureteral jet in the bladder were not seen. Postvoid volume 185 mL. Somewhat irregular or lobulated mucosa. Abdominal aorta diameter (cm): Mid - 1.9 IMPRESSION: 1. Cortical thinning and increased echogenicity of the right kidney indicating medical renal disease. 4.7 cm echogenic mass in the upper pole. 2.4 cm cyst in the midpole. No definite stone or hydronephrosis. Consider follow-up evaluation with pre- and post-IV contrast CT scan of the kidney. Left kidney with cortical thinning and lobulated contour no cyst or mass. No hydronephrosis. 2. Urinary bladder was visualized. Patient voided prior to the examination. Post void volume 185 mL with irregular and lobulated mucosal appearance. Electronically signed by: Ron William MD 08/06/2017 9:18 PM [employer]
== END ==
LOC: US 09:45
PROVIDERS: ATTEND Emergency Medicine
DX: Z87.448 Personal history of other diseases of urinary system (principal); K76.89 Other specified diseases of liver

== ENCOUNTER → 2017-09-05 | Outpatient (CLI) | payer MEDICARE | LOC: YCHH 14:43 | PROVIDERS: ATTEND Family Medicine | DX: N39.0 Urinary tract infection, site not specified (principal) ==

== ENCOUNTER → 2017-10-15 | Outpatient (CLI) | payer MEDICARE | END | disposition home or self-care (01) | LOC: YCHH 09:00 | PROVIDERS: ATTEND Family Medicine | DX: D64.9 Anemia, unspecified (principal); E78.5 Hyperlipidemia, unspecified; K21.9 Gastro-esophageal reflux disease without esophagitis; G30.1 Alzheimer's disease with late onset; M16.11 Unilateral primary osteoarthritis, right hip ==

== ENCOUNTER → 2017-11-12 | Outpatient (CLI) | payer MEDICARE | LOC: YCHH 14:20 | PROVIDERS: ATTEND Family Medicine | DX: N39.0 Urinary tract infection, site not specified (principal) ==

== ENCOUNTER 2018-01-09 20:21 | Emergency (ER) | payer MEDICARE ==
--- NOTE | 2018-01-09 21:21 | ED.PDOC ---
History of Present Illness - General Chief Complaint: Unresponsive Stated Complaint: pt found unresponsive, DNR Time Seen by Provider: 01/09/18 21:18 Source: family, EMS Exam Limitations: clinical condition - History of Present Illness Initial Comments: Patient comes in after being found by family unresponsive and not breathing. Patient is a hospice patient with a DNR order for end stage dementia. However, one of the daughters was not ok with not giving care and asked EMS to take her mom for chemical code only. All family agreed that the patient did not want to be intubated, shocked, or have compressions performed. Timing/Duration: 1/2 hour Severity: severe Improving Factors: nothing, other Worsening Factors: nothing Associated Symptoms: denies symptoms Allergies/Adverse Reactions: Allergies Fentanyl Allergy (Verified 06/18/17 19:03) Other Elevated BP, flushing Lorazepam [From Ativan] Allergy (Verified 06/18/17 19:03) Other causes flushing Morphine Adverse Reaction (Verified 06/18/17 19:03) Other causes hallucinations Home Medications: Ambulatory Orders Fenofibrate [Tricor] 145 mg PO DAILY 11/07/16 Memantine HCl [Namenda Xr] 28 mg PO BEDTIME 11/07/16 Metoprolol Succinate [Toprol Xl] 12.5 mg PO DAILY 11/07/16 Propafenone HCl 150 mg PO BID 11/07/16 Rivaroxaban [Xarelto] 10 mg PO BEDTIME 11/07/16 Tramadol HCl 50 mg PO Q4H PRN 11/07/16 Acetaminophen [Tylenol] 1,000 mg PO Q6H PRN 06/18/17 Polyethylene Glycol 3350 [Miralax] 17 gm PO DAILY PRN 06/18/17 Sertraline HCl [Zoloft] 12.5 mg PO BEDTIME 06/18/17 Cetirizine HCl [Zyrtec] 10 mg PO DAILY 08/02/17 Cyanocobalamin [Vitamin B12] 500 mcg PO DAILY 08/02/17 Esomeprazole Magnesium [Nexium] 20 mg PO DAILY 08/02/17 Pediatric Multiple Vitamin W/ [Flintstones Complete 60 mg] 1 chw PO DAILY Furosemide [Lasix] 20 mg PO DAILY PRN #30 tab 08/05/17 Review of Systems - Review of Systems Review of Systems: 01/09/18 21:21 unable to evaluate secondary to patient condition Past Medical History (General) - Patient Medical History Hx Seizures: No Hx Stroke: Yes - TIAs Hx Dementia: Yes Hx Asthma: No Hx of COPD: No Hx Cardiac Disorders: Yes Hx Congestive Heart Failure: No Hx Pacemaker: No Hx Hypertension: Yes Hx Diabetes: No Hx Gastroesophageal Reflux: Yes Hx Renal Disease: Yes - ONLY 1 KIDNEY WORKING Hx MRSA: No - Vaccination History Hx Influenza Vaccination: Yes Hx Pneumococcal Vaccination: Yes - Social History Hx Tobacco Use: Yes Hx Alcohol Use: No Hx Substance Use: No Hx Substance Use Treatment: No Hx Depression: No Hx Physical Abuse: No Hx Emotional Abuse: No - Female History Patient : No Family Medical History - Family History Mother Family History: No Known Living Status: Hx Cardiac Disease: Yes - dad Hx Family Cancer: Yes - dad-prostate,pancreas Physical Exam - Physical Exam General Appearance: Other - Patient has widely spaced agonal breathing on arrival and no palpable pulse Eye Exam: bilateral other - bilateral pupils are 3mm fixed and dilated Neck: normal inspection Respiratory: other - agonal breathing every several minutes with clear lung sounds with Ambu bag when started Cardiovascular/Chest: other - no heart activity able to be heard, minimal bradycardic activity seen on ultrasound Peripheral Pulses: radial,right: 0, radial,left: 0, femoral,right: 0, femoral, left: 0 Gastrointestinal/Abdominal: soft, other - no BS Progress - Progress Progress: 01/09/18 21:24 on arrival patient had received one dose of lidocaine and one dose of epi was ordered here. Patient had minimal electrical activity and sluggish bradycardic heart activity not able to be heard or felt but only seen on ultrasound. Agonal breathing was seen spaced out by 30 seconds or more. On arrival of family I discussed their and the patients wishes. They were adamant that she did not want to have compressions nor be placed on a ventilator or have assistance breathing. Explained that at current state without compressions her circulation was not adequate to circulate any medications and without assistance breathing her efforts were not enough to sustain her. The daughter that had originally asked for the chemical code was now sure that this is not what they nor the patient wanted and all 3 daughters were in agreement to stop care at this time. Patient had minimal heart activity for the next several minutes and only agonal breathing. I was called to room and >2 min was seen with no pulse, no heart sounds, no response to painful stimuli, and no respiratory effort. At 2108 TOD was declared with family at bedside and appropriate. Patient will be released to home. Departure - Departure Clinical Impression: Cardiac arrest Disposition: Condition: Serious Departure Forms: ED Discharge - Pt. Copy, Patient Portal Self Enrollment Referrals: Vahid Ortega MD [Primary Care Provider] - 1-2 Weeks Home Medications: Ambulatory Orders Fenofibrate [Tricor] 145 mg PO DAILY 11/07/16 Memantine HCl [Namenda Xr] 28 mg PO BEDTIME 11/07/16 Metoprolol Succinate [Toprol Xl] 12.5 mg PO DAILY 11/07/16 Propafenone HCl 150 mg PO BID 11/07/16 Rivaroxaban [Xarelto] 10 mg PO BEDTIME 11/07/16 Tramadol HCl 50 mg PO Q4H PRN 11/07/16 Acetaminophen [Tylenol] 1,000 mg PO Q6H PRN 06/18/17 Polyethylene Glycol 3350 [Miralax] 17 gm PO DAILY PRN 06/18/17 Sertraline HCl [Zoloft] 12.5 mg PO BEDTIME 06/18/17 Cetirizine HCl [Zyrtec] 10 mg PO DAILY 08/02/17 Cyanocobalamin [Vitamin B12] 500 mcg PO DAILY 08/02/17 Esomeprazole Magnesium [Nexium] 20 mg PO DAILY 08/02/17 Pediatric Multiple Vitamin W/ [Flintstones Complete 60 mg] 1 chw PO DAILY Furosemide [Lasix] 20 mg PO DAILY PRN #30 tab 08/05/17 Additional Instructions: patient was a hospice patient with a DNR. On arrival family withdrew all care and patient quickly . Patient to be released to home.
[2018-01-09] MEDS ORDERED: EPINEPHrine INJ 0.1 MG/ML 10 ML SYG ONE (22:00)
[2018-01-10 00:08] VITALS: BP 0/0; TEMP 0; O2SAT 0
== END 2018-01-09 21:08 | disposition expired ==
LOC: ER 20:21
DX: I46.9 Cardiac arrest, cause unspecified (principal); I10 Essential (primary) hypertension; F03.90 Unspecified dementia, unspecified severity, without behavioral disturbance, psychotic disturbance, mood disturbance, and anxiety; N28.9 Disorder of kidney and ureter, unspecified; Z86.73 Personal history of transient ischemic attack (TIA), and cerebral infarction without residual deficits; Z66 Do not resuscitate; Z79.899 Other long term (current) drug therapy; Z87.891 Personal history of nicotine dependence